=== PATIENT | female | born 1960 | race Caucasian/White ===

== ENCOUNTER 2016-11-14 10:47 | Outpatient (CLI) | payer OTHER | END 2016-11-14 10:48 | disposition home or self-care (01) | DX: M79.89 Other specified soft tissue disorders (principal); M79.642 Pain in left hand ==

== ENCOUNTER 2017-05-17 14:40 | Outpatient (CLI) | payer OTHER ==
[2017-05-17 19:35] LABS: BASOPHILS # (AUTO) 0.1 10^3/uL (0.0-0.1); BASOPHILS % (AUTO) 0.8 %; EOSINOPHILS # (AUTO) 0.2 10^3/uL (0.0-0.7); EOSINOPHILS % (AUTO) 2.5 %; HCT - HEMATOCRIT 36.8 % (37.0-47.0); HGB - HEMOGLOBIN 12.4 g/dL (12.0-16.0); LYMPHOCYTES # (AUTO) 2.3 10^3/uL (1.5-3.5); LYMPHOCYTES % (AUTO) 32.6 %; MEAN CORPUSCULAR HEMOGLOBIN 31.4 pg (27.0-31.0); MEAN CORPUSCULAR HGB CONC 33.7 g/dL (32.0-36.0); MEAN CORPUSCULAR VOLUME 93.2 fL (81.0-99.0); MEAN PLATELET VOLUME 8.2 fL (7.9-10.8); MONOCYTES # (AUTO) 0.4 10^3/uL (0.0-1.0); MONOCYTES % (AUTO) 5.3 %; NEUTROPHILS # (AUTO) 4.2 10^3/uL (1.5-6.6); NEUTROPHILS % (AUTO) 58.8 %; NUCLEATED RED BLOOD CELLS AUTO 0.1 /100WBC; RED BLOOD COUNT 3.94 10^6/uL (4.20-5.40); RED CELL DISTRIBUTION WIDTH 13.6 % (12.0-15.0); UNCORRECTED WHITE BLOOD COUNT 7.1 x10^3/uL; WHITE BLOOD COUNT 7.1 x10^3/uL (4.8-10.8)
[2017-05-17 20:05] LABS: ALBUMIN/GLOBULIN RATIO 1.4 (1.0-2.2); BILIRUBIN,TOTAL 0.4 mg/dL (0.2-1.0); BUN - BLOOD UREA NITROGEN 13 mg/dL (6-20); CALCIUM 9.2 mg/dL (8.5-10.3); CARBON DIOXIDE - CO2 28 mmol/L (21-32); CHLORIDE 101 mmol/L (101-111); CHOL/HDL RATIO 2.8 (<4.4); CHOLESTEROL 172 mg/dL; CREATININE 0.7 mg/dL (0.4-1.0); GFR - MDRD 87 (>89); GLUCOSE 89 mg/dL (70-100); HDL CHOLESTEROL 61 mg/dL; LDL/HDL RATIO 1.5 (<4.4); POTASSIUM 3.6 mmol/L (3.5-5.0); SODIUM 138 mmol/L (135-145); TOTAL PROTEIN 6.6 g/dL (6.7-8.2); TRIGLYCERIDES 102 mg/dL; VLDL CHOLESTEROL 20 mg/dL
== END 2017-05-17 14:41 | disposition home or self-care (01) ==
LOC: LAB.WCP 14:40
PROVIDERS: ATTEND Family Medicine
DX: I10 Essential (primary) hypertension (principal); E03.9 Hypothyroidism, unspecified
CPT/HCPCS: 36415; 80053; 80061; 84443; 85025

== ENCOUNTER 2017-05-19 07:14 | Outpatient (CLI) | payer OTHER ==
--- NOTE | 2017-05-21 07:08 | Mammography Report ---
DIGITAL SCREENING MAMMOGRAM: 05/19/2017 COMPARISON: 08/19/2015, 08/29/2014, 07/09/2011, 06/27/2010, 02/01/2009, and 01/28/2007. TECHNIQUE: Bilateral digital CC and MLO projections with a left exaggerated CC projection. FINDINGS: There are scattered fibroglandular densities. There is no dominant mass, architectural di stortion, skin thickening, suspicious microcalcifications, or interval change. IMPRESSION: NEGATIVE. BIRADS CATEGORY 1. SUGGEST RETURN TO ROUTINE SCREENING IN 12 MONTHS UNLESS T HERE IS AN INTERVAL CHANGE. STANDARD QUALIFYING STATEMENTS 1. This examination was reviewed with the aid of Computer-Aided Detection (CAD). 2. A negative or benign imaging report should not delay biopsy if clinically suspicious findings are present. Consider surgical consultation if warranted. More than 5% of cancers are not identified by i maging. 3. Dense breasts may obscure an underlying neoplasm. JOB #: [id number] EXT JOB #:[id number]
== END 2017-05-19 07:15 | disposition home or self-care (01) ==
LOC: DI 07:14
PROVIDERS: ATTEND Family Medicine
DX: Z12.31 Encounter for screening mammogram for malignant neoplasm of breast (principal)
CPT/HCPCS: 77067

== ENCOUNTER 2018-03-21 17:21 | Outpatient (CLI) | payer OTHER ==
[2018-03-21] MEDS ORDERED: IOPAMIDOL-300 100 ML VIAL ONE (18:37)
[2018-03-21] MEDS ORDERED: IOPAMIDOL-300 50 ML VIAL ONE (18:37)
[2018-03-21] MEDS ORDERED: IOPAMIDOL-300 50 ML VIAL PO ONE (20:32)
[2018-03-21] MEDS ORDERED: IOPAMIDOL-300 100 ML VIAL IVP ONE (20:34)
--- NOTE | 2018-03-21 21:59 | CT Report ---
Procedure Date: 03/21/2018 Accession Number: [id number] / [id number] Procedure: CT - Abdomen/Pelvis W/ CPT Code: FULL RESULT: EXAM: CT ABDOMEN AND PELVIS EXAM DATE: 03/21/2018 08:16 PM. CLINICAL HISTORY: ABDOMINAL PAIN,HEMATURIA. COMPARISONS: None. TECHNIQUE: Routine helical CT imaging was performed through the abdomen and pelvis. IV contrast: 100 cc Isovue-300. Enteric contrast: Yes. Reconstructions: Coronal and sagittal. In accordance with CT protocol optimization, one or more of the following dose reduction techniques were utilized for this exam: automated exposure control, adjustment of mA and/or KV based on patient size, or use of iterative reconstructive technique. FINDINGS: Lung Bases: Unremarkable. Liver: Normal. No masses. Gallbladder/Bile Ducts: Gallbladder surgically absent. No ductal dilatation. Spleen: Normal. Pancreas: Normal. Adrenal Glands: Normal. Kidneys: Normal in size, contour, and enhancement. Extrarenal pelves right greater than left without hydronephrosis or perinephric fat stranding. No gross stones. Peritoneal Cavity/Bowel: Stomach and small bowel are unremarkable. Appendix is normal. There is mild diverticulosis in the proximal to mid colon, moderate diverticulosis in the sigmoid colon. There is short segment moderate wall thickening in the proximal sigmoid colon associated with diverticula and moderate pericolonic fat stranding, consistent with acute diverticulitis. No abscess, free fluid, or free air is identified. No lymphadenopathy. Pelvic Organs: Bladder small in volume. Uterus surgically absent. No adnexal masses. Vasculature: No aneurysms or other significant abnormality. Bones: Moderate degenerative disk disease L3-L4. Other: Abdominal wall is unremarkable. IMPRESSION: 1. Moderate acute proximal sigmoid colon diverticulitis. No abscess or pneumoperitoneum. 2. Kidneys and ureters are unremarkable. The left ureter is not closely associated with the sigmoid colon inflammation, and it is uncertain if the diverticulitis is related to the hematuria. Follow-up urinalysis is recommended. RADIA The call report notification system was initiated by Dr. Max Barton at 21:53 hrs on 03/21/18. The above findings were discussed with Dr Shailesh Dr by Dr. Max Barton at 21:58 hrs on 03/21/18.
== END 2018-03-21 17:22 | disposition home or self-care (01) ==
LOC: DI 17:21
PROVIDERS: ATTEND Family Medicine
DX: R10.9 Unspecified abdominal pain (principal); R31.9 Hematuria, unspecified; K57.32 Diverticulitis of large intestine without perforation or abscess without bleeding
CPT/HCPCS: 36415; 74177; 80053; 85025; Q9967

== ENCOUNTER 2018-03-21 17:37 | Outpatient (CLI) | payer OTHER ==
[2018-03-21 18:02] LABS: BASOPHILS # (AUTO) 0.1 10^3/uL (0.0-0.1); BASOPHILS % (AUTO) 1.1 %; EOSINOPHILS # (AUTO) 0.1 10^3/uL (0.0-0.7); EOSINOPHILS % (AUTO) 0.6 %; HGB - HEMOGLOBIN 12.4 g/dL (12.0-16.0); LYMPHOCYTES # (AUTO) 2.3 10^3/uL (1.5-3.5); LYMPHOCYTES % (AUTO) 18.9 %; MEAN CORPUSCULAR HEMOGLOBIN 31.4 pg (27.0-31.0); MEAN CORPUSCULAR HGB CONC 33.1 g/dL (32.0-36.0); MEAN PLATELET VOLUME 7.7 fL (7.9-10.8); MONOCYTES # (AUTO) 0.8 10^3/uL (0.0-1.0); MONOCYTES % (AUTO) 6.7 %; NEUTROPHILS # (AUTO) 8.9 10^3/uL (1.5-6.6); NEUTROPHILS % (AUTO) 72.7 %; PLT - PLATELET COUNT 345 10^3/uL (130-450); RED BLOOD COUNT 3.93 10^6/uL (4.20-5.40); WHITE BLOOD COUNT 12.2 x10^3/uL (4.8-10.8)
[2018-03-21 18:09] LABS: ALBUMIN/GLOBULIN RATIO 1.3 (1.0-2.2); BILIRUBIN,TOTAL 0.8 mg/dL (0.2-1.0); CALCIUM 8.9 mg/dL (8.5-10.3); CREATININE 0.7 mg/dL (0.4-1.0); TOTAL PROTEIN 7.1 g/dL (6.7-8.2)
== END 2018-03-21 17:38 | disposition home or self-care (01) ==
LOC: LAB 17:37
PROVIDERS: ATTEND Family Medicine
DX: R10.9 Unspecified abdominal pain (principal)
CPT/HCPCS: 36415; 80053; 85025

== ENCOUNTER 2018-07-15 22:11 | Outpatient (CLI) | payer OTHER ==
--- NOTE | 2018-07-16 21:20 | XRAY Report ---
Reason: Back pain, thoracic region Procedure Date: 07/15/2018 Accession Number: [id number] / [id number] Procedure: XR - Thoracic Spine 2 View CPT Code: FULL RESULT: EXAM: THORACIC SPINE RADIOGRAPHY EXAM DATE: 07/15/2018 10:34 PM. CLINICAL HISTORY: Back pain, thoracic region. COMPARISON: None. TECHNIQUE: 2 views. FINDINGS: Alignment: Normal. No spondylolisthesis or scoliosis. Bones: Anterior wedging of T12 loss of height 30%. Disks: Osteophytes mid to lower T-spine. Soft Tissues: Normal. The visualized lungs and cardiomediastinal silhouette are normal. IMPRESSION: 1. Anterior wedging T12. 2. DJD RADIA
--- NOTE | 2018-07-16 21:32 | XRAY Report ---
Reason: Low back pain, chronic Procedure Date: 07/15/2018 Accession Number: [id number] / [id number] Procedure: XR - Lumbar Spine 2 View CPT Code: FULL RESULT: EXAM: LUMBOSACRAL SPINE RADIOGRAPHY EXAM DATE: 07/15/2018 10:53 PM. CLINICAL HISTORY: Low back pain, chronic. COMPARISONS: None. TECHNIQUE: 3 views. FINDINGS: Alignment: Mild levoscoliosis. Grade 1 retrolisthesis of 3 on L4. Bones: Five vyv-mbe-oxpjqbr lumbar vertebral bodies are present. Mild anterior wedging L1. Disks: 0203 osteophyte L3-L4 osteophyte disk space narrowing L4-L5 osteophyte mild disk space narrowing Facets: L4-L5 and L5-S1 facet arthropathy Sacroiliac Joints: Unremarkable. Soft Tissues: Normal. The visualized bowel gas pattern is normal. IMPRESSION: 1. Mild anterior wedging L1. 2. Moderate DJD RADIA
== END 2018-07-15 22:12 | disposition home or self-care (01) ==
LOC: DI 22:11
PROVIDERS: ATTEND Physician Assistant
DX: M48.54XA Collapsed vertebra, not elsewhere classified, thoracic region, initial encounter for fracture (principal); M47.9 Spondylosis, unspecified; M48.56XA Collapsed vertebra, not elsewhere classified, lumbar region, initial encounter for fracture
CPT/HCPCS: 72070; 72100

== ENCOUNTER 2018-09-07 08:25 | Outpatient (CLI) | payer OTHER ==
--- NOTE | 2018-09-08 08:56 | Mammography Report ---
Reason: SCREENING MAMMO Procedure Date: 09/07/2018 Accession Number: [id number] / [id number] Procedure: ARSENIO - Screening Mammo w/Karel CPT Code: FULL RESULT: EXAM: Screening Mammo w/Karel DATE: 09/07/2018 9:02 AM CLINICAL HISTORY: Screening encounter. History of breast reduction surgery in 2017. Family history of breast cancer in a sister in her 50s. TECHNIQUE: Bilateral CC, laterally exaggerated CC, MLO views were obtained. COMPARISON: 05/19/2017 through 07/09/2011. FINDINGS: The breasts demonstrate diffuse fatty replacement bilaterally. Changes of bilateral interval breast reduction surgery are noted. No suspicious masses, clustered microcalcifications, or regions of architectural distortion are identified. IMPRESSION: Benign findings RECOMMENDATION: Routine annual screening unless otherwise clinically indicated. BIRADS CATEGORY 2: Benign findings STANDARD QUALIFYING STATEMENTS: 1. This examination was not reviewed with the aid of Computer-Aided Detection (CAD). 2. A negative or benign imaging report should not preclude biopsy if clinically suspicious findings are present. 3. Dense breasts may obscure an underlying neoplasm. 4. This examination was reviewed with the aid of 3D breast imaging (tomosynthesis).
== END 2018-09-07 08:26 | disposition home or self-care (01) ==
LOC: DI 08:25
PROVIDERS: ATTEND Family Medicine
DX: Z12.31 Encounter for screening mammogram for malignant neoplasm of breast (principal); Z80.3 Family history of malignant neoplasm of breast
CPT/HCPCS: 77063; 77067

== ENCOUNTER 2018-11-01 10:20 | Outpatient (CLI) | payer OTHER ==
[2018-11-01 14:37] LABS: BASOPHILS # (AUTO) 0.1 10^3/uL (0.0-0.1); BASOPHILS % (AUTO) 0.8 %; EOSINOPHILS # (AUTO) 0.2 10^3/uL (0.0-0.7); HGB - HEMOGLOBIN 12.4 g/dL (12.0-16.0); LYMPHOCYTES # (AUTO) 1.7 10^3/uL (1.5-3.5); LYMPHOCYTES % (AUTO) 25.5 %; MEAN CORPUSCULAR HEMOGLOBIN 32.2 pg (27.0-31.0); MEAN CORPUSCULAR HGB CONC 34.1 g/dL (32.0-36.0); MEAN CORPUSCULAR VOLUME 94.6 fL (81.0-99.0); MEAN PLATELET VOLUME 8.4 fL (7.9-10.8); MONOCYTES # (AUTO) 0.4 10^3/uL (0.0-1.0); MONOCYTES % (AUTO) 5.9 %; NEUTROPHILS # (AUTO) 4.3 10^3/uL (1.5-6.6); NEUTROPHILS % (AUTO) 64.8 %; PLT - PLATELET COUNT 327 10^3/uL (130-450); RED BLOOD COUNT 3.84 10^6/uL (4.20-5.40); RED CELL DISTRIBUTION WIDTH 13.6 % (12.0-15.0); WHITE BLOOD COUNT 6.6 x10^3/uL (4.8-10.8)
[2018-11-01 17:07] LABS: ALBUMIN 3.8 g/dL (3.2-5.5); ALBUMIN/GLOBULIN RATIO 1.3 (1.0-2.2); ALKALINE PHOSPHATASE 61 IU/L (42-121); ALT ALANINE AMINOTRANSFERASE 21 IU/L (10-60); AST ASPARTATE AMINOTRANSFERASE 19 IU/L (10-42); BILIRUBIN,TOTAL 0.5 mg/dL (0.2-1.0); BUN - BLOOD UREA NITROGEN 13 mg/dL (6-20); CALCIUM 8.7 mg/dL (8.5-10.3); CARBON DIOXIDE - CO2 27 mmol/L (21-32); CHLORIDE 105 mmol/L (101-111); CHOL/HDL RATIO 2.7 (<4.4); CHOLESTEROL 184 mg/dL; CREATININE 0.7 mg/dL (0.4-1.0); GFR - MDRD 87 (>89); GLUCOSE 102 mg/dL (70-100); HDL CHOLESTEROL 67 mg/dL; LDL CHOLESTEROL,CALCULATED 92 mg/dL; LDL/HDL RATIO 1.4 (<4.4); SODIUM 140 mmol/L (135-145); TOTAL PROTEIN 6.7 g/dL (6.7-8.2); VLDL CHOLESTEROL 25 mg/dL
[2018-11-01 18:05] LABS: FREE T4 (FREE THYROXINE) 0.62 ng/dL (0.58-1.64)
[2018-11-01 19:39] LABS: HB2 TOTAL 13.3 g/dL; HEMOGLOBIN A1C 0.45 g/dL; HEMOGLOBIN A1C % 5.2 % (4.6-6.2)
== END 2018-11-01 23:59 | disposition home or self-care (01) ==
LOC: LAB.WCP 10:20
PROVIDERS: ATTEND Family Medicine
DX: Z00.00 Encounter for general adult medical examination without abnormal findings (principal); I10 Essential (primary) hypertension; E03.9 Hypothyroidism, unspecified
CPT/HCPCS: 36415; 80053; 80061; 83036; 83721; 84439; 84443; 85025

== ENCOUNTER 2019-01-06 08:00 | Outpatient (CLI) | payer OTHER ==
[2019-01-06 13:35] LABS: FREE T4 (FREE THYROXINE) 0.7 ng/dL (0.58-1.64)
== END 2019-01-06 23:59 | disposition home or self-care (01) ==
LOC: LAB.WCP 08:00
PROVIDERS: ATTEND Family Medicine
DX: E03.9 Hypothyroidism, unspecified (principal)
CPT/HCPCS: 36415; 84439; 84443

== ENCOUNTER 2019-01-18 07:17 | Outpatient (CLI) | payer OTHER ==
--- NOTE | 2019-01-18 11:17 | MRI Report ---
Reason: LUMBAR RADICULOPATHY Procedure Date: 01/18/2019 Accession Number: [id number] / [id number] Procedure: MRI - Lumbar Spine W/O CPT Code: FULL RESULT: EXAM: MRI LUMBAR SPINE WITHOUT CONTRAST EXAM DATE: 01/18/2019 08:03 AM. CLINICAL HISTORY: 58-year-old woman with lumbar radiculopathy. COMPARISON: LUMBAR SPINE 2 VIEW 07/15/2018 10:34 PM. TECHNIQUE: Multiplanar, multisequence T1-weighted and fluid-sensitive sequences of the lumbar spine from T12 to S1 without contrast. Other: None. FINDINGS: Spinal Canal: The conus terminates at L2. The conus medullaris and cauda equina are unremarkable. Alignment: Mild grade 1 retrolisthesis of L3 on L4 measures approximately 2 mm. Convex left scoliosis centered at L3-L4 with mild compensatory convex right curvature centered at the lumbosacral junction is demonstrated, similar to the 07/15/2018 radiographs. Bone Marrow: Five lci-qfn-rdfsins lumbar vertebral bodies are present. No gross fractures or bone lesions. Mild degenerative endplate edema and minimal superimposed Modic type II chronic degenerative endplate changes are present at L3-L4 on the right corresponding to the concave aspect of the scoliosis. Small Schmorl's node with surrounding Modic type II chronic degenerative change is also present in the L5 superior endplate. Small Schmorl's nodes without associated bone marrow changes are present at T11-T12 and T12-L1. Disk Levels/Facets: T12-L1: There is mild disk desiccation and height loss. No significant central canal or neural foraminal narrowing. L1-L2: Unremarkable. L2-L3: There is mild disk desiccation without significant height loss. No significant central canal or neural foraminal narrowing. L3-L4: There is moderate to severe disk height loss with mild degenerative edema within the disk space. Retrolisthesis of L3 on L4 and broad-based disk bulge combined with mild facet hypertrophy result in mild narrowing of the central canal with moderate narrowing of the lateral recesses bilaterally, right side worse than left. Facet hypertrophy and disk osteophyte complex in the subarticular spaces result in mild to moderate narrowing of the neural foramina bilaterally, right side worse than left. L4-L5: There is disk desiccation with mild disk height loss. No significant central canal stenosis. Facet hypertrophy and disk osteophyte complex in the subarticular spaces result in mild to moderate narrowing of the neural foramina bilaterally, right side worse than left. L5-S1: There is mild disk desiccation without significant height loss. No significant central canal stenosis. Disk osteophyte complex in the subarticular spaces and facet hypertrophy result in mild to moderate narrowing of the left neural foramen and mild narrowing on the right. Musculature: Normal. No edema or fatty atrophy. Other: The partially visualized retroperitoneum is unremarkable. IMPRESSION: 1. Convex left degenerative scoliosis centered at L3-L4. 2. Multilevel degenerative disk changes with acute on chronic bony endplate changes at L3-L4 on the right, corresponding to the concave apex of the scoliosis. 3. Degenerative changes result in the following: - L3-L4: Grade 1 retrolisthesis of L3 on L4. Mild narrowing of central canal with moderate narrowing of the lateral recesses bilaterally, right side worse than left. Mild to moderate narrowing of the neural foramina bilaterally, right side worse than left. - L4-L5: Mild to moderate narrowing of the neural foramina bilaterally, right side worse than left. - L5-S1: Mild to moderate narrowing of the left neural foramen and mild narrowing on the right. Comment: The following findings are so common in adults without low back pain that while we report their presence, they must be interpreted with caution and in the context of the clinical situation. (Reference Olegk et al, Spine 2001) Prevalence of findings in patients without low back pain: Disk degeneration (any evidence): 92% Disk desiccation/T2 signal loss: 83% Disk height loss: 56% Disk bulge: 64% Disk protrusion: 32% Annular tear/high intensity zone: 38% RADIA
== END 2019-01-18 07:18 | disposition home or self-care (01) ==
LOC: DI 07:17
PROVIDERS: ATTEND Family Medicine
DX: M51.36 Other intervertebral disc degeneration, lumbar region (principal); M48.061 Spinal stenosis, lumbar region without neurogenic claudication; M47.816 Spondylosis without myelopathy or radiculopathy, lumbar region; M41.86 Other forms of scoliosis, lumbar region; M43.16 Spondylolisthesis, lumbar region
CPT/HCPCS: 72148

== ENCOUNTER 2019-05-29 08:00 | Outpatient (CLI) | payer OTHER ==
[2019-05-29 20:01] LABS: FREE T4 (FREE THYROXINE) 0.71 ng/dL (0.58-1.64)
== END 2019-05-29 08:01 | disposition home or self-care (01) ==
LOC: LAB.WCP 08:00
PROVIDERS: ATTEND Family Medicine
DX: E03.9 Hypothyroidism, unspecified (principal)
CPT/HCPCS: 36415; 84439; 84443

== ENCOUNTER 2019-09-22 09:25 | Outpatient (CLI) | payer OTHER ==
[2019-09-22 12:17] LABS: BASOPHILS % (AUTO) 0.7 %; EOSINOPHILS # (AUTO) 0.2 10^3/uL (0.0-0.7); EOSINOPHILS % (AUTO) 2.5 %; LYMPHOCYTES # (AUTO) 2.1 10^3/uL (1.5-3.5); LYMPHOCYTES % (AUTO) 35.6 %; MEAN CORPUSCULAR HEMOGLOBIN 31.5 pg (27.0-31.0); MEAN CORPUSCULAR VOLUME 98.4 fL (81.0-99.0); MEAN PLATELET VOLUME 9.9 fL (7.9-10.8); MONOCYTES # (AUTO) 0.4 10^3/uL (0.0-1.0); MONOCYTES % (AUTO) 6.1 %; NEUTROPHILS # (AUTO) 3.2 10^3/uL (1.5-6.6); NEUTROPHILS % (AUTO) 54.8 %; PLT - PLATELET COUNT 334 10^3/uL (130-450); RED BLOOD COUNT 3.81 10^6/uL (4.20-5.40); RED CELL DISTRIBUTION WIDTH 13.4 % (12.0-15.0); WHITE BLOOD COUNT 5.9 x10^3/uL (4.8-10.8)
[2019-09-22 12:25] LABS: ALBUMIN 3.9 g/dL (3.2-5.5); ALBUMIN/GLOBULIN RATIO 1.3 (1.0-2.2); ALKALINE PHOSPHATASE 57 IU/L (42-121); ALT ALANINE AMINOTRANSFERASE 19 IU/L (10-60); AST ASPARTATE AMINOTRANSFERASE 19 IU/L (10-42); BILIRUBIN,TOTAL 0.7 mg/dL (0.2-1.0); BUN - BLOOD UREA NITROGEN 13 mg/dL (6-20); CALCIUM 8.9 mg/dL (8.5-10.3); CARBON DIOXIDE - CO2 27 mmol/L (21-32); CHLORIDE 103 mmol/L (101-111); CHOLESTEROL 207 mg/dL; CREATININE 0.7 mg/dL (0.4-1.0); GFR - MDRD 86 (>89); GLUCOSE 95 mg/dL (70-100); HDL CHOLESTEROL 70 mg/dL; LDL CHOLESTEROL,CALCULATED 112 mg/dL; LDL/HDL RATIO 1.6 (<4.4); SODIUM 139 mmol/L (135-145); TOTAL PROTEIN 6.8 g/dL (6.7-8.2); VLDL CHOLESTEROL 25 mg/dL
[2019-09-22 14:36] LABS: FREE T4 (FREE THYROXINE) 0.72 ng/dL (0.58-1.64)
== END 2019-09-22 09:26 | disposition home or self-care (01) ==
LOC: LAB.WCP 09:25
PROVIDERS: ATTEND Family Medicine
DX: I10 Essential (primary) hypertension (principal); E03.9 Hypothyroidism, unspecified
CPT/HCPCS: 36415; 80053; 80061; 83721; 84439; 84443; 85025

== ENCOUNTER 2020-05-22 08:00 | Outpatient (CLI) | payer OTHER ==
--- NOTE | 2020-05-22 15:45 | XRAY Report ---
PROCEDURE: Shoulder 3 View LT INDICATIONS: LEFT SHOULDER PAIN TECHNIQUE: 3 views of the shoulder were acquired. COMPARISON: None. FINDINGS: Bones: No acute fractures or dislocations. No suspicious bony lesions. Visualized ribs appear inta ct. Mild acromioclavicular osteoarthrosis. Soft tissues: No suspicious soft tissue calcifications. IMPRESSION: No acute osseous abnormality. If symptoms persist with conservative management, further evaluation with CT or MRI may be obtained. Reviewed by: Mike Morgan MD on 05/22/2020 3:44 PM PDT Approved by: Mike Morgan MD on 05/22/2020 3:44 PM PDT Station ID: [id number]
--- NOTE | 2020-05-22 15:48 | XRAY Report ---
PROCEDURE: Wrist 2 View LT INDICATIONS: LEFT WRIST PAIN TECHNIQUE: 2 views of the wrist were acquired. COMPARISON: Left hand radiographs dated 11/14/2016 FINDINGS: Bones: No acute fractures or dislocations. Well-defined lucency within the central capitate is nonsp ecific, but is stable when compared to the radiographs from 11/14/2016 and may be related to degenerat ar cystic changes. Soft tissues: No suspicious soft tissue calcifications. IMPRESSION: No acute osseous abnormality. Reviewed by: Mike Morgan MD on 05/22/2020 3:46 PM PDT Approved by: Mike Morgan MD on 05/22/2020 3:46 PM PDT Station ID: [id number]
--- NOTE | 2020-05-22 15:49 | XRAY Report ---
PROCEDURE: Ribs 2 View LT INDICATIONS: LEFT SIDE RIB PAIN TECHNIQUE: 3 views of the left ribs were acquired. COMPARISON: Chest radiographs dated 11/15/2016 FINDINGS: Surgical changes and devices: None. Bones and chest wall: No acute fractures or dislocations. No suspicious bony lesions. Overlying so ft tissues appear unremarkable. Lungs and pleura: The visualized lung appears clear. No pleural effusions or pneumothorax are visib le. IMPRESSION: No acute displaced rib fracture. No pleural effusion or pneumothorax. Reviewed by: Mike Morgan MD on 05/22/2020 3:48 PM PDT Approved by: Mike Morgan MD on 05/22/2020 3:48 PM PDT Station ID: [id number]
== END 2020-05-22 23:59 | disposition home or self-care (01) ==
LOC: DI.WCP 08:00
PROVIDERS: ATTEND Physician Assistant
DX: M25.512 Pain in left shoulder (principal); M25.532 Pain in left wrist; R07.81 Pleurodynia

== ENCOUNTER 2020-09-13 08:00 | Outpatient (CLI) | payer OTHER ==
[2020-09-13 17:52] LABS: BASOPHILS % (AUTO) 0.5 %; EOSINOPHILS # (AUTO) 0.1 10^3/uL (0.0-0.7); EOSINOPHILS % (AUTO) 1.7 %; HGB - HEMOGLOBIN 11.9 g/dL (12.0-16.0); MEAN CORPUSCULAR HEMOGLOBIN 31.6 pg (27.0-31.0); MEAN CORPUSCULAR HGB CONC 31.9 g/dL (32.0-36.0); MEAN CORPUSCULAR VOLUME 98.9 fL (81.0-99.0); MONOCYTES # (AUTO) 0.5 10^3/uL (0.0-1.0); MONOCYTES % (AUTO) 6.2 %; NEUTROPHILS # (AUTO) 4.9 10^3/uL (1.5-6.6); NEUTROPHILS % (AUTO) 65.3 %; PLT - PLATELET COUNT 341 10^3/uL (130-450); RED BLOOD COUNT 3.77 10^6/uL (4.20-5.40); RED CELL DISTRIBUTION WIDTH 13.5 % (12.0-15.0); WHITE BLOOD COUNT 7.5 x10^3/uL (4.8-10.8)
[2020-09-13 19:08] LABS: ALBUMIN/GLOBULIN RATIO 1.4 (1.0-2.2); BILIRUBIN,TOTAL 0.6 mg/dL (0.2-1.0); CALCIUM 8.7 mg/dL (8.5-10.3); CREATININE 0.7 mg/dL (0.4-1.0); TOTAL PROTEIN 6.9 g/dL (6.7-8.2)
[2020-09-13 20:40] LABS: RHEUMATOID FACTOR NEGATIVE (Negative)
[2020-09-16 11:56] LABS: ANA SCREEN NEGATIVE (NEGATIVE)
== END 2020-09-13 23:59 | disposition home or self-care (01) ==
LOC: LAB.WCP 08:00
PROVIDERS: ATTEND Physician Assistant
DX: M25.50 Pain in unspecified joint (principal)
CPT/HCPCS: 36415; 80053; 85025; 85651; 86038; 86225; 86430

== ENCOUNTER 2020-09-27 08:00 | Outpatient (CLI) | payer OTHER | END 2020-09-27 23:59 | disposition home or self-care (01) | LOC: LAB.R 08:00 | PROVIDERS: ATTEND Nurse Practitioner | DX: N39.0 Urinary tract infection, site not specified (principal) | CPT/HCPCS: 87086 ==

== ENCOUNTER 2020-09-30 13:11 | Outpatient (CLI) | payer OTHER | END 2020-09-30 13:12 | disposition home or self-care (01) | LOC: DI 13:11 | PROVIDERS: ATTEND Physician Assistant | DX: I10 Essential (primary) hypertension (principal) | CPT/HCPCS: 93306 ==

== ENCOUNTER 2020-09-30 15:15 | Outpatient (CLI) | payer OTHER ==
--- NOTE | 2020-10-01 08:27 | Mammography Report ---
BILATERAL DIGITAL SCREENING MAMMOGRAM 3D/2D: 09/30/2020 CLINICAL: Family history of breast cancer. Routine screening. Comparison is made to exams dated: 09/07/2018 mammogram, 05/19/2017 mammogram, and 08/19/2015 mammogram - [facility]. There are scattered fibroglandular elements in both breasts. The patient is status post reduction both breasts. No significant masses, calcifications, or other findings are seen in either breast. IMPRESSION: BENIGN There is no mammographic evidence of malignancy. A 1 year screening mammogram is recommended. This exam was interpreted at Station ID: [id number]. NOTE: For mammograms, a report in lay terms will be sent to the patient. Approximately 15% of breast malignancies will not be visualized mammographically. In the management of a palpable breast mass, a negative mammogram must not discourage biopsy of a clinically suspicious lesion. Electronically Signed By: Mike christianson/shad:09/30/2020 16:42:38 ACR BI-RADS Category 2: Benign Finding(s) 3342F PARENCHYMAL PATTERN: (A) - The breast(s) demonstrate(s) scattered fibroglandular densities. BI-RADS CATEGORY: (2) - 2 RECOMMENDATION: (ANNUAL) - Recommend routine annual screening mammography. [id number] 1 year screening LATERALITY: (B)
== END 2020-09-30 15:16 | disposition home or self-care (01) ==
LOC: DI.N 15:15
DX: Z12.31 Encounter for screening mammogram for malignant neoplasm of breast (principal); Z80.3 Family history of malignant neoplasm of breast

== ENCOUNTER 2020-10-07 11:30 | Outpatient (CLI) | payer OTHER | END 2020-10-07 23:59 | disposition home or self-care (01) | LOC: LAB.N 11:30 | PROVIDERS: ATTEND Family Medicine | DX: J02.9 Acute pharyngitis, unspecified (principal) | CPT/HCPCS: 87070 ==

== ENCOUNTER 2021-02-14 22:43 | Emergency (ER) | payer OTHER ==
[2021-02-14] MEDS ORDERED: TETANUS/DIPHTHERIA/PERTUSSIS 0.5 ML SYRINGE IM ONE (22:51)
[2021-02-14] MEDS ORDERED: BACITRACIN ZINC OINT 1 PACKET TOP STA (22:51)
--- NOTE | 2021-02-14 22:54 | ED Physician Documentation ---
History of Present Illness - Stated complaint Stated Complaint: LT FINGER LAC/INJ - History obtained from History obtained from: Patient - Additonal information Additional information: 60-year-old woman, not on blood thinners presents with avulsed skin at the tip of the Left second finger that occurred this evening just prior to arrival while slicing onions. She states that she applied direct pressure but it kept bleeding and so she came in to be evaluated. Bleeding has now stopped. Last tetanus 11 years ago. Review of Systems Skin: reports: Other (avulsion) Musculoskeletal: denies: Joint pain Neurologic: denies: Focal weakness, Numbness PD ED PE NORMAL - Vitals Vital signs reviewed: Yes - General General: Alert and oriented X 3, No acute distress, Well developed/nourished - Derm Derm: Normal color, Warm and dry, Other (1cm superficial avulsed skin to distal tip of L 2nd finger, hemostatic. joints nontender. no other injury) - Neuro Neuro: Alert and oriented X 3, No motor deficit, No sensory deficit - Psych Psych: Normal mood, Normal affect PD MEDICAL DECISION MAKING - ED course ED course: 60-year-old woman presents with skin avulsion from slicing her finger while chopping onions. Tetanus updated. The wound does not have any clear laceration that can be sewn up. We cleaned the site thoroughly and applied bacitracin and a dressing. Education given about signs and symptoms of infection. Return precautions given. Patient will follow up with her primary doctor. Departure - Departure Disposition: 01 Home, Self Care Clinical Impression: Avulsion of skin of finger Condition: Good Instructions: ED Laceration Hand Comments: You were seen in the emergency department for an avulsion (sliced skin) of the tip of your finger. Side that happened to you! We updated your tetanus shot and cleaned the wound, applying bacitracin, a topical antibiotic. Please keep the wound dressing dry for 24 to 48 hours and then you can change the bandage daily thereafter. Monitor for any signs of infection as we discussed. Follow- up with your primary doctor. Return to the emergency department if you have any new or worsening symptoms or other concerns.
[2021-02-14 23:00] VITALS: BP 143/110
== END 2021-02-14 23:12 | disposition home or self-care (01) ==
LOC: ED 22:43
DX: S61.201A Unspecified open wound of left index finger without damage to nail, initial encounter (principal); W26.0XXA Contact with knife, initial encounter; Y93.G1 Activity, food preparation and clean up; Z23 Encounter for immunization
CPT/HCPCS: 90471; 90715; 99282; 99283; A9270

== ENCOUNTER 2021-08-11 14:26 | Outpatient (CLI) | payer OTHER | END 2021-08-11 23:59 | disposition home or self-care (01) | LOC: LAB.N 14:26 | PROVIDERS: ATTEND Physician Assistant Medical | DX: N39.0 Urinary tract infection, site not specified (principal); R39.9 Unspecified symptoms and signs involving the genitourinary system | CPT/HCPCS: 87077; 87086; 87181 ==

== ENCOUNTER 2021-08-14 12:42 | Outpatient (CLI) | payer OTHER ==
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
== END 2021-08-14 23:59 | disposition home or self-care (01) ==
LOC: DI.N 12:42
PROVIDERS: ATTEND Nurse Practitioner
DX: M79.603 Pain in arm, unspecified (principal); M25.519 Pain in unspecified shoulder; N64.4 Mastodynia

== ENCOUNTER 2021-10-07 10:45 | Outpatient (CLI) | payer OTHER ==
[2021-10-07 18:03] LABS: BASOPHILS # (AUTO) 0.1 10^3/uL (0.0-0.1); BASOPHILS % (AUTO) 0.9 %; EOSINOPHILS # (AUTO) 0.2 10^3/uL (0.0-0.7); EOSINOPHILS % (AUTO) 2.2 %; HCT - HEMATOCRIT 37.8 % (37.0-47.0); HGB - HEMOGLOBIN 12.4 g/dL (12.0-16.0); LYMPHOCYTES # (AUTO) 2.1 10^3/uL (1.5-3.5); LYMPHOCYTES % (AUTO) 30.1 %; MEAN CORPUSCULAR HEMOGLOBIN 31.8 pg (27.0-31.0); MEAN CORPUSCULAR HGB CONC 32.8 g/dL (32.0-36.0); MEAN CORPUSCULAR VOLUME 96.9 fL (81.0-99.0); MEAN PLATELET VOLUME 10.3 fL (7.9-10.8); MONOCYTES # (AUTO) 0.4 10^3/uL (0.0-1.0); MONOCYTES % (AUTO) 6.5 %; NEUTROPHILS # (AUTO) 4.1 10^3/uL (1.5-6.6); PLT - PLATELET COUNT 331 10^3/uL (130-450); RED CELL DISTRIBUTION WIDTH 13.5 % (12.0-15.0); WHITE BLOOD COUNT 6.8 x10^3/uL (4.8-10.8)
[2021-10-07 18:13] LABS: ALBUMIN 3.8 g/dL (3.2-5.5); ALBUMIN/GLOBULIN RATIO 1.2 (1.0-2.2); ALKALINE PHOSPHATASE 63 IU/L (42-121); ALT ALANINE AMINOTRANSFERASE 26 IU/L (10-60); AST ASPARTATE AMINOTRANSFERASE 20 IU/L (10-42); BILIRUBIN,TOTAL 0.5 mg/dL (0.2-1.0); BUN - BLOOD UREA NITROGEN 15 mg/dL (6-20); CALCIUM 8.9 mg/dL (8.5-10.3); CARBON DIOXIDE - CO2 26 mmol/L (21-32); CHLORIDE 98 mmol/L (101-111); CHOL/HDL RATIO 2.5 (<4.4); CHOLESTEROL 179 mg/dL; CREATININE 0.7 mg/dL (0.4-1.0); GFR - MDRD 86 (>89); GLUCOSE 102 mg/dL (70-100); HDL CHOLESTEROL 72 mg/dL; LDL CHOLESTEROL,CALCULATED 84 mg/dL; LDL/HDL RATIO 1.2 (<4.4); POTASSIUM 3.9 mmol/L (3.5-5.0); SODIUM 134 mmol/L (135-145); TOTAL PROTEIN 6.9 g/dL (6.7-8.2); TRIGLYCERIDES 117 mg/dL; VLDL CHOLESTEROL 23 mg/dL
[2021-10-07 18:20] LABS: THYROID STIMULATING HORMONE 1.86 uIU/mL (0.34-5.60)
[2021-10-07 18:22] LABS: FREE T3 3.79 pg/mL (2.5-3.9); FREE T4 (FREE THYROXINE) 0.89 ng/dL (0.58-1.64)
[2021-10-07 20:37] LABS: ESTIMATED AVERAGE GLUCOSE 114 mg/dL (70-100); HEMOGLOBIN A1c% 5.6 % (4.27-6.07)
== END 2021-10-07 10:46 | disposition home or self-care (01) ==
LOC: LAB.N 10:45
PROVIDERS: ATTEND Physician Assistant
DX: Z00.00 Encounter for general adult medical examination without abnormal findings (principal); E03.9 Hypothyroidism, unspecified; D50.9 Iron deficiency anemia, unspecified
CPT/HCPCS: 36415; 80053; 80061; 83036; 83721; 84439; 84443; 84481; 85025

== ENCOUNTER 2022-01-28 08:00 | Outpatient (CLI) | payer OTHER ==
--- NOTE | 2022-01-28 17:16 | XRAY Report ---
PROCEDURE: Foot 3 View RT INDICATIONS: R FOOT PX TECHNIQUE: 3 views of the foot were acquired. COMPARISON: None FINDINGS: Bones: No fractures or dislocations. No suspicious bony lesions. Soft tissues: No tibiotalar joint effusion. Achilles tendon appears normal. IMPRESSION: No visualized acute fracture or dislocation. However, occult injury cannot be excluded. Recommend omar rt interval imaging follow-up in 7-10 days as clinically indicated for additional evaluation. Reviewed by: Brooke Lopez MD on 01/28/2022 5:14 PM PDT Approved by: Brooke Lopez MD on 01/28/2022 5:14 PM PDT Station ID: [id number]
== END 2022-01-28 23:59 | disposition home or self-care (01) ==
LOC: DI.N 08:00
PROVIDERS: ATTEND Family Medicine
DX: M79.671 Pain in right foot (principal)

== ENCOUNTER 2022-03-18 08:12 | Outpatient (CLI) | payer OTHER ==
--- NOTE | 2022-03-18 14:57 | Ultrasound Report ---
PROCEDURE: Head or Neck Soft Tissue INDICATIONS: HYPOTHYROIDISM TECHNIQUE: Real-time scanning was performed of the thyroid gland, with image documentation. COMPARISON: None. FINDINGS: Right lobe: 3.6 x 2.0 x 1.7 cm. Heterogeneous echotexture with possible increased vascularity on Dop pler images. Left lobe: 3.4 x 1.3 x 1.1 cm. Heterogeneous echotexture with possible increased vascularity on Dopp ler images. Isthmus: 0.2 cm. No discrete thyroid nodule identified within the thyroid gland. IMPRESSION: 1. The thyroid gland is heterogeneous in appearance with possible increase in vascularity on Doppler images. These findings can be seen in the setting of a thyroiditis. 2. No discrete thyroid nodule visualized. Reviewed by: Mike Ledezma MD on 03/18/2022 2:56 PM PDT Approved by: Mike Ledezma MD on 03/18/2022 2:56 PM PDT Station ID: [id number]
== END 2022-03-18 08:13 | disposition home or self-care (01) ==
LOC: DI 08:12
PROVIDERS: ATTEND Physician Assistant
DX: E03.9 Hypothyroidism, unspecified (principal)

== ENCOUNTER 2022-11-17 09:16 | Outpatient (CLI) | payer OTHER ==
--- NOTE | 2022-11-20 09:55 | Mammography Report ---
BILATERAL DIGITAL SCREENING MAMMOGRAM 3D/2D: 11/17/2022 CLINICAL: High risk screening. Routine screening. Comparison is made to exams dated: 09/30/2020 mammogram, 09/07/2018 mammogram, 05/19/2017 mammogram, and 08/19/2015 mammogram - [facility]. Both breasts are almost entirely fatty (category a/<25% glandular tissue). No significant masses, calcifications, or other findings are seen in either breast. There has been no significant interval change. IMPRESSION: NEGATIVE There is no mammographic evidence of malignancy. A 1 year screening mammogram is recommended. Based on the Tyrer Cuzick model (a risk assessment model) the patients lifetime risk is 8.7% and her 10 year risk is 3.5%. According to the ACR, ACS, and NCCN guidelines, an annual breast MRI exam daylin g with mammogram is recommended if the patients lifetime risk is 20% or greater. This exam was interpreted at Station ID: [id number]. NOTE: For mammograms, a report in lay terms will be sent to the patient. Approximately 15% of breast malignancies will not be visualized mammographically. In the management of a palpable breast mass, a negative mammogram must not discourage biopsy of a clinically suspicious lesion. Electronically Signed By: Tyler berg/shad:11/20/2022 07:41:17 letter sent: No_Letter ACR BI-RADS Category 1: Negative 3341F PARENCHYMAL PATTERN: (F) - The breast(s) demonstrate(s) diffuse fatty replacement. BI-RADS CATEGORY: (1) - 1 Mammogram [id number] 1 year screening LATERALITY: (B)
== END 2022-11-17 09:17 | disposition home or self-care (01) ==
LOC: DI.N 09:16
DX: Z12.31 Encounter for screening mammogram for malignant neoplasm of breast (principal)

== ENCOUNTER 2022-12-25 11:16 | Outpatient (CLI) | payer OTHER ==
[2022-12-25 18:35] LABS: THYROID STIMULATING HORMONE 6.51 uIU/mL (0.34-5.60)
[2022-12-25 18:38] LABS: FREE T3 3.23 pg/mL (2.5-3.9)
[2022-12-25 18:39] LABS: FREE T4 (FREE THYROXINE) 0.76 ng/dL (0.58-1.64)
[2022-12-26 20:07] LABS: THYROGLOBULIN ANTIBODY <1.0 IU/mL (0.0-0.9); THYROID PEROXIDASE (TPO) AB 287 IU/mL (0-34)
== END 2022-12-25 11:17 | disposition home or self-care (01) ==
LOC: LAB.N 11:16
PROVIDERS: ATTEND Physician Assistant
DX: E06.9 Thyroiditis, unspecified (principal)
CPT/HCPCS: 36415; 84439; 84443; 84481; 86376; 86800

== ENCOUNTER 2022-12-25 12:58 | Outpatient (CLI) | payer OTHER ==
[2022-12-25 17:56] LABS: BASOPHILS % (AUTO) 0.6 %; EOSINOPHILS # (AUTO) 0.1 10^3/uL (0.0-0.7); EOSINOPHILS % (AUTO) 1.8 %; HCT - HEMATOCRIT 37.5 % (37.0-47.0); LYMPHOCYTES # (AUTO) 2.1 10^3/uL (1.5-3.5); LYMPHOCYTES % (AUTO) 29.8 %; MEAN CORPUSCULAR HEMOGLOBIN 31.5 pg (27.0-31.0); MEAN CORPUSCULAR VOLUME 98.4 fL (81.0-99.0); MEAN PLATELET VOLUME 10.1 fL (7.9-10.8); MONOCYTES # (AUTO) 0.5 10^3/uL (0.0-1.0); MONOCYTES % (AUTO) 7.1 %; NEUTROPHILS # (AUTO) 4.3 10^3/uL (1.5-6.6); NEUTROPHILS % (AUTO) 60.6 %; PLT - PLATELET COUNT 332 10^3/uL (130-450); RED BLOOD COUNT 3.81 10^6/uL (4.20-5.40); RED CELL DISTRIBUTION WIDTH 14.6 % (12.0-15.0); WHITE BLOOD COUNT 7.1 x10^3/uL (4.8-10.8)
[2022-12-25 18:22] LABS: ALBUMIN 3.9 g/dL (3.2-5.5); ALBUMIN/GLOBULIN RATIO 1.4 (1.0-2.2); BILIRUBIN,TOTAL 0.5 mg/dL (0.2-1.0); CALCIUM 8.9 mg/dL (8.5-10.3); CREATININE 0.7 mg/dL (0.4-1.0); POTASSIUM 4.4 mmol/L (3.5-5.0); TOTAL PROTEIN 6.7 g/dL (6.7-8.2)
== END 2022-12-25 23:59 | disposition home or self-care (01) ==
LOC: LAB.N 12:58
PROVIDERS: ATTEND Physician Assistant
DX: K92.2 Gastrointestinal hemorrhage, unspecified (principal); R53.83 Other fatigue
CPT/HCPCS: 36415; 80053; 85025

== ENCOUNTER 2023-06-22 13:58 | Outpatient (CLI) | payer OTHER ==
--- NOTE | 2023-06-22 15:22 | XRAY Report ---
PROCEDURE: Chest 2 View X-Ray INDICATIONS: CHRONIC COUGH TECHNIQUE: 2 views of the chest were acquired. COMPARISON: None. FINDINGS: Surgical changes and devices: None. Lungs and pleura: No pleural effusions or pneumothorax. Lungs are clear. Mediastinum: Mediastinal contours appear normal. Heart size is normal. Bones and chest wall: No suspicious bony lesions. Overlying soft tissues appear unremarkable. IMPRESSION: No acute cardiopulmonary process. Reviewed by: Augie Ruiz on 06/22/2023 3:21 PM PDT Approved by: Augie Ruiz on 06/22/2023 3:21 PM PDT Station ID: [id number]
--- NOTE | 2023-06-22 16:29 | XRAY Report ---
PROCEDURE: Wrist 4 View LT INDICATIONS: WRIST PAIN. LEFT TECHNIQUE: 3 views of the wrist were acquired. COMPARISON: None. FINDINGS: Bones: No fractures or dislocations. No suspicious bony lesions. Benign indeterminant peripherally sclerotic cystic lesion of the capitate bone, likely a subchondral cyst. Soft tissues: No suspicious soft tissue calcifications or masses. IMPRESSION: No acute bony abnormality. Incidental noted made of benign, long-standing, indeterminant peripherally sclerotic cystic lesion of the capitate bone Reviewed by: Danny Keller MD on 06/22/2023 4:28 PM PDT Approved by: Danny Keller MD on 06/22/2023 4:28 PM PDT Station ID: [id number]
--- NOTE | 2023-06-22 16:30 | XRAY Report ---
PROCEDURE: Hand 3 View LT INDICATIONS: HAND PAIN, LEFT TECHNIQUE: 3 views of the hand(s) acquired. COMPARISON: Left wrist FINDINGS: Bones: No fractures or dislocations. No suspicious bony lesions. Again noted is an incidental benig n appearing peripherally sclerotic cystic lesion of the capitate bone in the wrist. Soft tissues: No suspicious soft tissue calcifications or masses. IMPRESSION: No acute bony abnormality. Reviewed by: Danny Keller MD on 06/22/2023 4:29 PM PDT Approved by: Danny Keller MD on 06/22/2023 4:29 PM PDT Station ID: [id number]
== END 2023-06-22 13:59 | disposition home or self-care (01) ==
LOC: DI 13:58
PROVIDERS: ATTEND Physician Assistant
DX: R05.3 Chronic cough (principal); M25.532 Pain in left wrist; M79.642 Pain in left hand

== ENCOUNTER 2023-12-03 08:59 | Outpatient (CLI) | payer OTHER ==
[2023-12-03 11:57] LABS: BASOPHILS # (AUTO) 0.1 10^3/uL (0.0-0.1); EOSINOPHILS # (AUTO) 0.2 10^3/uL (0.0-0.7); HCT - HEMATOCRIT 38.5 % (37.0-47.0); HGB - HEMOGLOBIN 12.1 g/dL (12.0-16.0); LYMPHOCYTES # (AUTO) 2.2 10^3/uL (1.5-3.5); LYMPHOCYTES % (AUTO) 35.7 %; MEAN CORPUSCULAR HEMOGLOBIN 29.9 pg (27.0-31.0); MEAN CORPUSCULAR HGB CONC 31.4 g/dL (32.0-36.0); MEAN CORPUSCULAR VOLUME 95.1 fL (81.0-99.0); MEAN PLATELET VOLUME 9.9 fL (7.9-10.8); MONOCYTES # (AUTO) 0.4 10^3/uL (0.0-1.0); MONOCYTES % (AUTO) 6.3 %; NEUTROPHILS # (AUTO) 3.2 10^3/uL (1.5-6.6); NEUTROPHILS % (AUTO) 52.8 %; PLT - PLATELET COUNT 330 10^3/uL (130-450); RED BLOOD COUNT 4.05 10^6/uL (4.20-5.40)
[2023-12-03 12:06] LABS: ALBUMIN 3.9 g/dL (3.2-5.5); ALBUMIN/GLOBULIN RATIO 1.4 (1.0-2.2); ALKALINE PHOSPHATASE 72 IU/L (42-121); ALT ALANINE AMINOTRANSFERASE 16 IU/L (10-60); AST ASPARTATE AMINOTRANSFERASE 14 IU/L (10-42); BILIRUBIN,TOTAL 0.4 mg/dL (0.2-1.0); BUN - BLOOD UREA NITROGEN 11 mg/dL (6-20); CALCIUM 9.6 mg/dL (8.5-10.3); CARBON DIOXIDE - CO2 31 mmol/L (21-32); CHLORIDE 104 mmol/L (101-111); CHOL/HDL RATIO 2.8 (<4.4); CHOLESTEROL 175 mg/dL; CREATININE 0.6 mg/dL (0.6-1.3); GFR - MDRD 102 (>89); GLUCOSE 112 mg/dL (74-104); HDL CHOLESTEROL 62 mg/dL; LDL CHOLESTEROL,CALCULATED 72 mg/dL; LDL/HDL RATIO 1.2 (<4.4); POTASSIUM 4.1 mmol/L (3.5-4.5); SODIUM 139 mmol/L (135-145); TOTAL PROTEIN 6.7 g/dL (6.4-8.9); TRIGLYCERIDES 203 mg/dL (48-352); VLDL CHOLESTEROL 41 mg/dL
[2023-12-03 12:16] LABS: THYROID STIMULATING HORMONE 0.01 uIU/mL (0.34-5.60)
== END 2023-12-03 09:00 | disposition home or self-care (01) ==
LOC: LAB.N 08:59
PROVIDERS: ATTEND Physician Assistant
DX: I10 Essential (primary) hypertension (principal); E03.9 Hypothyroidism, unspecified
CPT/HCPCS: 36415; 80053; 80061; 83721; 84439; 84443; 84481; 85025